=== PATIENT | male | born 1980 | race Caucasian/White ===

== ENCOUNTER 2016-11-26 13:24 | Emergency (ER) | payer MEDICAID, OTHER ==
[~2016-11-26] VITALS: Wt 65.0 kg
[2016-11-26] MEDS ORDERED: SOD CHLORIDE 0.9% 1,000 ML IV STA (14:04)
[2016-11-26] MEDS ORDERED: KETOROLAC 30 MG INJ IV STA (14:04)
[2016-11-26] MEDS ORDERED: morphine 4 MG/ML VIAL IV STA (14:04)
[2016-11-26] MEDS ORDERED: ONDANSETRON 4 MG INJ IV STA (14:04)
[2016-11-26 14:30] LABS: BASOPHILS % 0.4 % (0.0-2.0); EOSINOPHILS # 0.1 10^3/ul (0.0-0.5); EOSINOPHILS % 0.5 % (0.0-7.0); HEMATOCRIT 42.6 % (42.0-52.0); HEMOGLOBIN 14.6 g/dl (14.0-18.0); LYMPHOCYTES # 1.6 10^3/ul (0.8-2.9); LYMPHOCYTES % 15.3 % (15.0-51.0); MEAN CORPUSCULAR HEMOGLOBIN 30.2 pg (29.0-33.0); MEAN CORPUSCULAR HGB CONC 34.3 g/dl (32.0-37.0); MEAN CORPUSCULAR VOLUME 88.2 fl (82.0-101.0); MEAN PLATELET VOLUME 10.5 fl (7.4-10.4); MONOCYTE # 0.6 10^3/ul (0.3-0.9); MONOCYTES % 5.1 % (0.0-11.0); NEUTROPHIL # 8.4 10^3/ul (1.6-7.5); NEUTROPHILS % 78.4 % (39.0-77.0); PLATELET COUNT 265 10^3/UL (140-415); RED BLOOD COUNT 4.83 10^6/ul (4.70-6.10); RED CELL DISTRIBUTION WIDTH 12.2 % (11.5-14.5); WHITE BLOOD COUNT 10.7 10^3/ul (4.8-10.8)
[2016-11-26 14:46] LABS: INR 1.03; PROTIME 13.5 Sec (12.2-14.2); PT RATIO 1.1
[2016-11-26 14:51] LABS: ALBUMIN 4.4 g/dl (3.3-4.9); ALBUMIN/GLOBULIN RATIO 1.37; BILIRUBIN,INDIRECT 0.4 mg/dl (0-1.1); BILIRUBIN,TOTAL 0.4 mg/dl (0.2-1.3); CREATININE 1.02 mg/dl (0.61-1.24); POTASSIUM 3.8 mmol/L (3.5-5.1); TOTAL PROTEIN 7.6 g/dl (6.1-8.1)
[2016-11-26 14:58] LABS: ADD UMIC YES; UR ASCORBIC ACID NEGATIVE (NEGATIVE); UR BACTERIA FEW /HPF (NONE SEEN); UR BILIRUBIN (Dip) NEGATIVE (NEGATIVE); UR BLOOD (Dip) 2+ mg/dL (NEGATIVE); UR CLARITY SLIGHTLY CLOUDY (CLEAR); UR COLOR YELLOW (YELLOW); UR GLUCOSE (Dip) 1+ mg/dL (NEGATIVE); UR KETONES (Dip) TRACE mg/dL (NEGATIVE); UR LEUKOCYTE ESTERASE (Dip) NEGATIVE Leu/ul (NEGATIVE); UR NITRITE (Dip) NEGATIVE (NEGATIVE); UR NONSQUAMOUS EPITHELIAL CELL 55 /HPF (NONE SEEN); UR RBC > 182 /HPF (0-5); UR SPECIFIC GRAVITY (Dip) 1.016 (1.003-1.030); UR SQUAMOUS EPITHELIAL CELL FEW /HPF (FEW); UR TOTAL PROTEIN (Dip) 3+ mg/dl (NEGATIVE); UR UROBILINOGEN (Dip) NEGATIVE (NEGATIVE)
[2016-11-26 15:08] LABS: UR MUCUS FEW /HPF (NONE SEEN); UR TRANSITIONAL EPI CELL FEW /HPF (NONE SEEN)
--- NOTE | 2016-11-26 15:27 | RADRPT ---
PROCEDURE: CT ABDOMEN AND PELVIS WITHOUT CONTRAST. CLINICAL INDICATION: Abdominal pain. Loss of appetite. TECHNIQUE: CT scan of the abdomen and pelvis without contrast was performed on a multidetector hig h-resolution CT scanner. The patient was scanned without intravenous contrast. Coronal and sagittal reformatted images were obtained from the axial source images. Images were reviewed on a high-resol [employer] PACS workstation. The total exam CTDI equals 6.9 mGy and the total exam DLP equals 411.7 mGy-c m. One or more of the following dose reduction techniques were used: Automated exposure control. Adjustment of the mA and/or kV according to patient size. Use of iterative reconstruction technique. COMPARISON: None FINDINGS: CT abdomen: There is a 1.2 cm nodular opacity within the right lower lobe. There is also a small 3 mm nodule wit hin the right middle lobe, seen on image #8. There is bibasilar atelectasis. Heart size is within no rmal limits. There has been pericardial effusion. Hepatic morphology is within normal limits. No gross contour deforming masses. The gallbladder is wi thin normal limits. No evidence of intrahepatic or extrahepatic biliary dilatation. The spleen and pancreas are within normal limits. Both adrenal glands are within normal limits. Both kidneys are in normal anatomic position. No evidence of obstruction or hydronephrosis. No gross renal/ureteric calculi. The visualized GI tract demonstrate normal caliber loops of small and large bowel. No evidence of tomasz wel obstruction. The appendix is within normal limits. The unenhanced aorta is unremarkable. No significant retroperitoneal lymphadenopathy. CT pelvis: The bladder appears to within limits. The prostate gland is normal size. The rectosigmoid colon appe ars to within limits. No same free fluid. Same pelvic lymphadenopathy. The visualized osseous structures appear to be with normal limits. IMPRESSION: 1. No evidence of acute intra-abdominal/pelvic inflammatory process. No evidence of bowel obstructio n. The appendix is within normal limits. 2. No evidence of free fluid or free air. No gross focal fluid collections. 3. 1.2 cm nodular opacity within the right lower lobe. Suspect infectious/inflammatory process. Clin ical age. Recommend follow-up CT scan of the chest for complete evaluation. RPTAT: AAPP Tyson Cantu, Physician Date Time Electronically viewed and signed by Tyson Cantu Physician on 11/26/2016 15:27 JL/
--- NOTE | 2016-11-26 15:28 | RADRPT ---
PROCEDURE: Scrotal ultrasound CLINICAL INDICATION: Bilateral testicular pain. TECHNIQUE: Scrotal ultrasound was performed with sagittal and transverse views. Heredia scale and co tomi imaging was performed. Images were reviewed on high resolution PACS monitors. COMPARISON: None available FINDINGS: The right testicle measures 4.3 x 2.2 x 2.6 cm. The left testicle measures 4.4 x 2.2 x 3.0 cm. There is normal size and echogenicity and morphology bilaterally. There is blood flow seen to both testes. This is slightly more prominent on the right than left.. Right epididymis appears very slightly hyperemic. There are small bilateral hydroceles present. There is no evidence for varicocele. The soft tissues are unremarkable. No mass or cyst or other abnormality is seen. IMPRESSION: 1. Slightly hypervascular appearance to the right epididymis and right testis. This raises the ques tion of mild epididymal orchitis. 2. Small bilateral hydroceles. Note: A call report was made to Ceferino Sin ([facility]) on 11/26/2016 3:26:04 PM. RPTAT: AACC Physician Marlena Date Time Electronically viewed and signed by Physician Marlena on 11/26/2016 15:27 /
[2016-11-26] MEDS ORDERED: DOXY100T20 PO (16:01)
[2016-11-26] MEDS ORDERED: NAPR-260 PO (16:01)
[2016-11-26 16:33] VITALS: BP 137/88; PULSE 68; RESP 20; TEMP 98
--- NOTE | 2016-11-26 17:45 | ERD ---
ER Documentation Chief Complaint Date/Time DATE: 11/26/16 TIME: 17:37 Chief Complaint PAIN WITH URINATION, LOWER ABD PAIN HPI Patient is a 36-year-old male with no significant past medical history presenting to the emergency department with complaints of testicular pain which radiates up to his bilateral flank region. Symptoms began yesterday evening. Pain has been intermittent. Pain is severe. He denies any penile discharge, hematuria, or urinary symptoms. He denies fevers, chills, or other symptoms at this time. ROS All systems reviewed and are negative except as per history of present illness. Medications Home Meds Active Scripts Naproxen* (Naprosyn*) 500 Mg Tablet, 500 MG PO BID Y for PAIN AND/OR INFLAMMATION, #30 TAB Prov:CEFERINO SNI PA-C 11/26/16 Doxycycline Hyclate* (Doxycycline Hyclate*) 100 Mg Tablet.dr, 100 MG PO BID for 10 Days, #20 TAB Prov:CEFREINO SIN PA-C 11/26/16 PMhx/Soc Medical and Surgical Hx: pt denies Medical Hx, pt denies Surgical Hx Hx Alcohol Use: No Hx Substance Use: No Hx Tobacco Use: No Physical Exam Vitals Vital Signs Date Time Temp Pulse Resp B/P Pulse Ox O2 Delivery O2 Flow Rate FiO2 11/26/16 16:33 98.0 68 20 137/88 11/26/16 13:29 98.6 59 17 141/83 98 Physical Exam Const: Nontoxic, well-appearing male in mild distress secondary to pain. Head: Atraumatic Eyes: Normal Conjunctiva ENT: Normal External Ears, Nose and Mouth. Neck: Full range of motion..~ No meningismus. Resp: Clear to auscultation bilaterally Cardio: Regular rate and rhythm, no murmurs Abd: Soft, non tender, non distended. Normal bowel sounds Exam: Scrotum: No redness or swelling. Hernia: None Testes/Epid: Normal lie. Bilateral tenderness palpation. Cremaster: Reflex intact Lymph: No inguinal lymphadenopathy Discharge: None Skin: No petechiae or rashes Back: Bilateral flank tenderness to palpation. No midline tenderness. No CVA tenderness. Ext: No cyanosis, or edema Neur: Awake and alert Psych: Normal Mood and Affect Result Diagram: 11/26/16 1415 11/26/16 1415 Results 24 hrs Laboratory Tests Test 11/26/16 14:10 11/26/16 14:15 Urine Color YELLOW Urine Clarity SLIGHTLY CLOUDY Urine pH 6.0 Urine Specific [place] 1.016 Urine Ketones TRACEmg/dL Urine Nitrite NEGATIVEmg/dL Urine Bilirubin NEGATIVEmg/dL Urine Urobilinogen NEGATIVEmg/dL Urine Leukocyte Esterase NEGATIVELeu/ul Urine Microscopic RBC > 182/HPF Urine Microscopic WBC 84/HPF Urine Squamous Epithelial Cells FEW/HPF Urine Transitional Epithelial Cells FEW/HPF Urine Bacteria FEW/HPF Urine Mucus FEW/HPF Urine Hemoglobin 2+mg/dL Urine Glucose 1+mg/dL Urine Total Protein 3+mg/dl White Blood Count 10.710^3/ul Red Blood Count 4.8310^6/ul Hemoglobin 14.6g/dl Hematocrit 42.6% Mean Corpuscular Volume 88.2fl Mean Corpuscular Hemoglobin 30.2pg Mean Corpuscular Hemoglobin Concent 34.3g/dl Red Cell Distribution Width 12.2% Platelet Count 72296^3/UL Mean Platelet Volume 10.5fl Neutrophils % 78.4% Lymphocytes % 15.3% Monocytes % 5.1% Eosinophils % 0.5% Basophils % 0.4% Nucleated Red Blood Cells % 0.0/100WBC Neutrophils # 8.410^3/ul Lymphocytes # 1.610^3/ul Monocytes # 0.610^3/ul Eosinophils # 0.110^3/ul Basophils # 0.010^3/ul Nucleated Red Blood Cells # 0.010^3/ul Prothrombin Time 13.5Sec Prothrombin Time Ratio 1.1 INR International Normalized Ratio 1.03 Activated Partial Thromboplast Time 27.0Sec Sodium Level 143mmol/L Potassium Level 3.8mmol/L Chloride Level 110mmol/L Carbon Dioxide Level 23mmol/L Anion Gap 14 Blood Urea Nitrogen 12mg/dl Creatinine 1.02mg/dl Glucose Level 114mg/dl Calcium Level 9.0mg/dl Total Bilirubin 0.4mg/dl Direct Bilirubin 0.00mg/dl Indirect Bilirubin 0.4mg/dl Aspartate Amino Transf (AST/SGOT) 37IU/L Alanine Aminotransferase (ALT/SGPT) 99IU/L Alkaline Phosphatase 128IU/L Total Protein 7.6g/dl Albumin 4.4g/dl Globulin 3.20g/dl Albumin/Globulin Ratio 1.37 Lipase 60U/L Current Medications Medications (Trade) Dose Ordered Sig/Wilder Route PRN Reason Start Time Stop Time Status Last Admin Dose Admin Sodium Chloride (NS) 1,000 ml @ 1,000 mls/hr Q1H STAT IV 11/26/16 14:04 11/26/16 15:03 DC 11/26/16 14:27 Morphine Sulfate (morphine) 4 mg ONCE STAT IV 11/26/16 14:04 11/26/16 14:06 DC 11/26/16 14:27 Ondansetron HCl (Zofran Inj) 4 mg ONCE STAT IV 11/26/16 14:04 11/26/16 14:06 DC 11/26/16 14:27 Ketorolac Tromethamine (Toradol) 30 mg ONCE STAT IV 11/26/16 14:04 11/26/16 14:06 DC 11/26/16 14:27 Procedures/MDM 36-year-old male presenting to the emergency department with complaints of bilateral testicular and flank pain. The patient is treated in the department with IV fluids, IV morphine, IV Zofran, and IV Toradol. He was feeling significantly improved on reevaluation. CBC showed no signs of leukocytosis or anemia. Chemistry panel showed mildly elevated alkaline phosphatase at 128, but not significant. There is also slightly elevated ALT of 99, which was an incidental finding. Urinalysis did show 1+ glucose, 3+ protein, and trace ketones, but glucose was 114, within normal limits. Low suspicion for diabetic ketoacidosis. CT abdomen and pelvis showed no evidence of acute intra- abdominal or pelvic inflammatory process. No evidence of bowel obstruction. The appendix was within normal limits. No evidence of free fluid or free air. No gross focal fluid collections. There was a 1.2 cm nodular opacity found within the right lower lobe. Suspect infectious/inflammatory process. Recommended follow-up CT scan of the chest for complete evaluation. This was discussed with the patient and I recommended follow-up as an outpatient with his primary care physician to have a CT chest ordered. Testicular ultrasound showed slightly hypervascular appearance to the right epididymis and right testis. This raises a question of mild epididymal orchitis. Small bilateral hydroceles. No other significant findings. After workup in the department the likely diagnosis was orchitis. Low suspicion for acute abdomen, sepsis, or other emergent conditions. Low suspicion for obstructive uropathy or septic stone. The patient is stable for outpatient management with a prescription for doxycycline and NSAIDs. He was advised to have close follow-up with his primary care physician and urologist if indicated. My medical decision making was shared with the patient. He was given copies of his imaging studies and his labs. Strict ER return precautions were discussed. Close follow-up with the primary care physician was advised. PROCEDURE: Scrotal ultrasound CLINICAL INDICATION: Bilateral testicular pain. TECHNIQUE: Scrotal ultrasound was performed with sagittal and transverse views. Heredia scale and color imaging was performed. Images were reviewed on high resolution PACS monitors. COMPARISON: None available FINDINGS: The right testicle measures 4.3 x 2.2 x 2.6 cm. The left testicle measures 4.4 x 2.2 x 3.0 cm. There is normal size and echogenicity and morphology bilaterally. There is blood flow seen to both testes. This is slightly more prominent on the right than left.. Right epididymis appears very slightly hyperemic. There are small bilateral hydroceles present. There is no evidence for varicocele. The soft tissues are unremarkable. No mass or cyst or other abnormality is seen. IMPRESSION: 1. Slightly hypervascular appearance to the right epididymis and right testis. This raises the question of mild epididymal orchitis. 2. Small bilateral hydroceles. Note: A call report was made to Ceferino Sin) on 11/26/2016 3:26:04 PM. RPTAT: AACC Physician Marlena Date Time Electronically viewed and signed by Physician Marlena on 11/26/2016 15: 27 PROCEDURE: XR Chest. CLINICAL INDICATION: Cough. TECHNIQUE: An AP view of the chest was obtained. COMPARISON: Chest x-ray dated 11/06/2015 FINDINGS: The lungs are mildly hyperinflated. There is prominence of the parahilar bronchovascular markings with mild peribronchial cuffing. No focal airspace consolidation is identified. The cardiothymic silhouette is unremarkable. No pleural effusion or pneumothorax is seen. The osseous structures and visualized portion of the upper abdomen are unremarkable. IMPRESSION: Mild hyperinflation of the lungs with prominence of the parahilar bronchovascular markings. This is a nonspecific finding of airway inflammation , and can be seen with small airways infection , including bronchiolitis as well as reactive airways disease. RPTAT: HH .Trina Vasquez MD, MD Date Time Electronically viewed and signed by .Trina Vasquez MD, MD on 11/26/2016 10 :28 Departure Diagnosis: Primary Impression: Orchitis Condition: Fair Patient Instructions: Orchitis Ref[facility]: [facility] Usted se lance hecho un examen mdico de control que le indica que no est en eligio condicin que requiera tratamiento urgente en el Departamento de Emergencia. Un estudio ms profundo y el tratamiento de villagomez condicin pueden esperar sin ningn riesgo hasta que usted sea atendida/o en el consultorio de villagomez mdico o eligio cl staci. Es responsabilidad suya arreglar eligio livier para el seguimiento del araseli. MANEJO DE CONDICIONES NO URGENTES EN EL FUTURO 1) Si usted tiene un mdico de atencin primaria: Usted debera llamar a villagomez mdico de atencin primaria antes de venir al departamento de emergencia. Despus de las horas de consultorio, villagomez doctor o villagomez asociado/a est disponible por telfono. El mdico o enfermero de troy en el servicio telefnico puede asesorarle por clementine medio para atender el problema, o araseli contrario se puede programar eligio livier. 2) Si usted no tiene un mdico de atencin primaria: Llame al mdico o clnica de referencia que aparece abajo dmitriy las horas de consultorio para hacer eligio livier para que le vean. CLINICAS: [facility] [phone] [facility] [phone] [facility] [phone] [facility] [phone] [facility] [phone] [address] [facility] [phone] [address] Additional Instructions: No mas mejor en 2-3 martines, regresar. Mas peor en 24 horas, regresear rapidamente. Ir a doctor primario in 5-7 martines. Usar instrucciones cuando marilyn medicamento. CEFERINO SIN PA-C Nov 26, 2016 17:45
== END 2016-11-26 16:34 | disposition home or self-care (01) ==
LOC: EDBD 13:24 → FTE 13:24
DX: N45.2 Orchitis (principal); R10.30 Lower abdominal pain, unspecified
CPT/HCPCS: 36415; 74176; 76870; 80053; 81001; 83690; 85025; 85610; 85730; 96374; 96375; J1885; J2270; J2405; J7030; Z7502